=== PATIENT | male | born 1965 | race Caucasian/White ===

== ENCOUNTER 2020-08-31 07:24 | Outpatient (RCR) | payer OTHER ==
[~2020-08-31] VITALS: Ht 190.5 cm; Wt 100.9 kg
== END 2020-09-01 10:09 | disposition home or self-care (01) ==
LOC: PREOP 07:24
PROVIDERS: ATTEND Surgery
DX: Z01.818 Encounter for other preprocedural examination (principal)

== ENCOUNTER → 2020-09-04 | Outpatient (CLI) | payer OTHER | LOC: LAB FS 10:00 | PROVIDERS: ATTEND Surgery | DX: Z01.812 Encounter for preprocedural laboratory examination (principal); R22.2 Localized swelling, mass and lump, trunk; Z20.822 Contact with and (suspected) exposure to COVID-19 | CPT/HCPCS: 87635 ==

== ENCOUNTER 2020-09-08 07:20 | Day surgery (SDC) | payer OTHER ==
[~2020-09-08] VITALS: Ht 190.5 cm; Wt 100.7 kg
[2020-09-08] VITALS (7 sets, daily range): BP systolic 122–138; BP diastolic 67–83
[2020-09-08] MEDS ORDERED: ceFAZolin 2 GM IV Premixed 50 ML IV ONE (07:45)
[2020-09-08] MEDS ORDERED: LACTATED RINGERS 1,000 ML IV PRN (07:45)
[2020-09-08] MEDS ORDERED: LIDOCAINE/EPI 1%-1:100,000 (XYLOCAINE) 50 ML ONE (09:10)
--- NOTE | 2020-09-08 09:11 | Progress Note-Pre Operative ---
Pre-Operative Progress Note H&P Reviewed The H&P was reviewed, patient examined and no changes noted. Time Seen by Provider: 09:06 Date H&P Reviewed: Sep 08, 2020 Time H&P Reviewed: 09:07 Pre-Operative Diagnosis: Chest mass x 2 EFREN RODRIGUEZ DO Sep 08, 2020 09:11
[2020-09-08] MEDS ORDERED: ACHD5005 PO (09:55)
--- NOTE | 2020-09-08 09:55 | Progress Note-Post Operative ---
Post-Operative Progess Note Surgeon (s)/Channel Worker (s) Surgeon EFREN RODRIGUEZ DO Channel Worker: HARVEY Richards Pre-Operative Diagnosis Chest mass x 2 Post-Operative Diagnosis same pending path Procedure & Operative Findings Date of Procedure 09/08/20 Procedure Performed/Findings Exc chest mass - center, 3.8 x 0.8 cm into subQ fat Exc chest mass - left, 1.4 cm into subQ fat Anesthesia Type IV sedation by RFID SYSTEMS ENGINEER Estimated Blood Loss Estimated blood loss (mL): scant Specimens/Packing Specimens Removed chest mass x 2 EFREN RODRIGUEZ DO Sep 08, 2020 09:55
--- NOTE | 2020-09-08 09:56 | Discharge Inst-Surgical ---
Discharge Inst-Surgical Depart Medication/Instructions New, Converted or Re-Newed RX: RX Given to Pt/Family Patient Instructions Follow up Appt: Make appointment for 1 week. [phone] Instructions: No lifting greater than 20 pounds. No strenuous activity. May shower in 24 hours, no tub bath or soaking. Use incentive spirometer at home as directed. No Smoking Skin/Wound Care: May remove bandages in am. You need to leave the Dermabond on incision it will fall off on it's own. Symptoms to Report: Appetite Changes, Extremity Discoloration, Numbness/Tingling, Swelling Increased, Bleeding Excessive, Eyesight Changes, Pain Increased, Urine Color Change, Constipation(Persistent), Fever over 101 degree F, Pain/Pressure in chest, Urinating Difficulty, Cough Up/Vomit Blood, Heart Beat Irreg/Pounding, Pain/Pressure in jaw, Cramps in feet or legs, Lightheadedness, Pain/Pressure in shoulder, Diarrhea(Persistent), Memory Changes Suddenly, Questions/Concerns, Weight gain consecutive days, Dizziness/Fainting, Nausea/Vomiting, Shortness of Breath, Weight gain over 2 pounds If questions or concerns contact your physician Or seek help at emergency department. Activity Activity as Tolerated: Yes Activity Instructions: Avoid Stress to Incision Driving Instructions: No Driving/Refer to Dr. Bo Discharge Diet: No Restrictions Diet After 24 Hours: Clear Liquid if Nauseous If Any Problems/Questions/Issu: Contact Your Physician, Go to Emergency Room Skin/Wound Care Infection Signs and Symptoms: Increased Redness, Foul Odor of Wound, Increased Drainage, Skin Itchy or Has a Rash, Increased Swelling, Temperature Above 101 F Bathing Instructions: Shower Stitches/[place]/Dermabond Dis: EFREN Alonzo DO Sep 08, 2020 09:56
--- NOTE | 2020-09-08 10:06 | Anesthesia-General Post-Op ---
MAC Patient Condition Mental Status/LOC: Same as Preop Cardiovascular: Satisfactory Nausea/Vomiting: Absent Respiratory: Satisfactory Pain: Controlled Complications: Absent Post Op Complications Complications None Follow Up Care/Instructions Patient Instructions None needed. Anesthesiology Discharge Order Discharge Order Patient is doing well, no complaints, stable vital signs, no apparent adverse anesthesia problems. No complications reported per nursing. NATACHA SOUSA CRNA Sep 08, 2020 10:06
--- NOTE | 2020-09-08 16:35 | OPERATIVE REPORT ---
DATE OF SERVICE: PREOPERATIVE DIAGNOSIS: Chest mass x2. POSTOPERATIVE DIAGNOSIS: Chest mass x2, pending pathology, most likely a sebaceous cyst. PROCEDURES: 1. Excision of chest mass measuring 3.8 x 0.8 cm. 2. Excision of chest mass 1.4 cm, both down into the subcutaneous fat. SURGEON: Handy Haile DO FORM SETTER HELPER: Shaq Pretty MS3. ANESTHESIA: IV sedation by the BASEBALL CLUB MANAGER. SPECIMEN: Chest mass in the center, which measured about just over 3 cm and small chest mass just under a centimeter. BLOOD LOSS: Scant. FLUIDS: Per anesthesia. POSTOPERATIVE CONDITION: Stable. INDICATION FOR PROCEDURE: The patient is a 54-year-old male who had 2 masses on his chest, one in the center of the chest has been there and "removed a couple times and it keeps coming back" and another one on the left side that he wanted removed as well. FINDINGS: The patient had 2 chest removed, looks like it most likely a sebaceous cyst. They were sent to pathology. PROCEDURE NOTE: After informed consent was obtained, the patient was brought to the operating room, placed on the operating table in supine position, sterilely prepped and draped in normal fashion. Local lidocaine was used to infiltrate around both of these masses and then started with one in the middle. I made a small incision. I made a turn into an elliptical incision measuring 3.8 x 0.8 cm. The mass was at least over 3 cm large, started dissecting around this with sharp dissection with a #15 blade. I had used a #15 blade to make an elliptical incision and then started dissecting around. At one point did get into this cyst, little bit of sebaceous material came out. Able to grasp this with a hemostat and then keep dissecting around it and then able to remove the cyst cutler completely using Bovie electrocautery as well. I then copiously irrigated with normal saline. Hemostasis obtained and then elected to close the incision with 4-0 undyed Monocryl 3 interrupted subcuticular stitches. I turned attention to the mass in the left chest. We made 1.4 cm incision with #15 blade, carried down through the skin into subcutaneous tissue, then deepened down to subcutaneous tissue with the #15 blade, doing sharp dissection to go down around this mass into the subcutaneous fat and then removed it using Bovie electrocautery to completely remove it to help with the completion of removing it and to control bleeding. Once this was removed, we passed this off the table, looked like we got all of the cyst cutler. Copiously irrigated with normal saline. Hemostasis obtained and then this was closed with 4-0 undyed Monocryl 2 interrupted subcuticular stitches. Area was cleaned and dried and skin Affix was placed as well as a sterile dressing. The patient tolerated the procedure. Sponge, instrument and needle count correct at the end of the case. Job ID: [id number] DocumentID: [id number] Dictated Date: 09/08/2020 11:18:21 Road Oiling Truck Driver Date: 09/08/2020 16:35:05 Dictated By: HANDY HAILE DO
== END 2020-09-08 11:06 | disposition home or self-care (01) ==
LOC: SDC 07:20
PROVIDERS: ATTEND Surgery
DX: L72.0 Epidermal cyst (principal); D48.1 Neoplasm of uncertain behavior of connective and other soft tissue
CPT/HCPCS: 87081; 88304